=== PATIENT | female | born 1940 | race Caucasian/White ===

== ENCOUNTER 2017-09-04 13:53 | Emergency (ER) | payer MEDICARE, BC ==
[~2017-09-04] VITALS: Ht 157.5 cm; Wt 56.0 kg
[~2017-09-04 13:53] MED LIST: AZIT250T PO
[2017-09-04] MEDS ORDERED: dexamethasone sod phosphate 10mg/ml inj PO ONE (15:15)
[2017-09-04] MEDS ORDERED: HYDR12.55 PO (15:26)
[2017-09-04] MEDS ORDERED: AMLO10TA PO (15:26)
[2017-09-04 15:50] VITALS: BP 173/73
== END 2017-09-04 15:52 | disposition home or self-care (01) ==
LOC: ER 13:53
DX: T78.3XXA Angioneurotic edema, initial encounter (principal); I10 Essential (primary) hypertension; M06.9 Rheumatoid arthritis, unspecified; Z98.890 Other specified postprocedural states; Z79.899 Other long term (current) drug therapy
CPT/HCPCS: 99283; J1100